=== PATIENT | male | born 1985 | race Caucasian/White ===

== ENCOUNTER 2018-02-10 03:18 | Emergency (ER) | payer OTHER ==
[~2018-02-10] VITALS: Ht 190.5 cm; Wt 95.3 kg
[~2018-02-10 03:18] MED LIST: KEFLEX500 MG PO; NORCO 5-325 TA1 EAC1 PO; NORCO 5-325 TA1 EACH PO
[2018-02-10] MEDS ORDERED: OMEPRAZOLE 20 M20 M1 (03:28)
[2018-02-10] MEDS ORDERED: ADDERALL 20 MG20 M1 (03:29)
[2018-02-10 05:09] LABS: HEMOGLOBIN 15.2 gm/dL (14.0-18.0); MCH 30.2 pg (26.0-34.0); MCHC 33.7 g/dL (28.0-37.0); MCV 89.6 fL (80.0-100.0); MPV 7.9 fl. (7.2-11.1); RBC 5.02 mil/uL (4.50-6.00); RDW-CV 13.2 % (10.5-14.5); WBC 10.4 thou/uL (4.0-11.0)
[2018-02-10 05:16] LABS: URINE BLOOD NEGATIVE (Negative); URINE CLARITY CLEAR; URINE COLOR YELLOW; URINE GLUCOSE-RANDOM NEGATIVE (Negative); URINE KETONES NEGATIVE (Negative); URINE LEUKOCYTES NEGATIVE (Negative); URINE NITRITE NEGATIVE (Negative); URINE PROTEIN TRACE (Negative); URINE SPECIFIC GRAVITY >= 1.030 (1.005-1.030); URINE UROBILINOGEN 0.2 E.U./dl (0.2-1.0)
[2018-02-10 05:18] LABS: ICTOTEST (BILI CONFIRMATORY) Negative (Negative); URINE BILIRUBIN 1+ (Negative)
[2018-02-10 05:20] LABS: CALCIUM 8.8 mg/dL (8.5-10.1); POTASSIUM 4.3 mmol/L (3.5-5.1)
[2018-02-10 05:37] LABS: AMP/METHAMP POSITIVE (Negative); BARBITURATES Negative (Negative); BENZODIAZEPINES Negative (Negative); COCAINE Negative (Negative); METHADONE Negative (Negative); OPIATES Negative (Negative); PCP Negative (Negative); THC POSITIVE (Negative)
[2018-02-10 05:37] LABS: ALBUMIN 3.7 g/dL (3.4-5.0); TOTAL BILIRUBIN 0.2 mg/dL (<0.1-1.0); TOTAL PROTEIN 7.1 g/dL (6.4-8.2)
[2018-02-10 05:40] LABS: SALICYLATE < 2.8 mg/dL (2.8-20.0)
[2018-02-10 05:48] LABS: ACETAMINOPHEN < 2 ug/mL (10-30); ALCOHOL < 10 mg/dL (<10)
[2018-02-10 09:18] VITALS: BP 126/75
== END 2018-02-10 09:18 | disposition home or self-care (01) ==
LOC: M.ERS 03:18
PROVIDERS: Personal Emergency Response Attendant
DX: F32.9 Major depressive disorder, single episode, unspecified (principal); R45.851 Suicidal ideations; K21.9 Gastro-esophageal reflux disease without esophagitis; F90.9 Attention-deficit hyperactivity disorder, unspecified type; F17.210 Nicotine dependence, cigarettes, uncomplicated; Z79.899 Other long term (current) drug therapy